=== PATIENT | female | born 1975 | race Caucasian/White ===

== ENCOUNTER 2017-07-11 17:28 | Emergency (ER) | payer OTHER ==
[~2017-07-11] VITALS: Ht 172.7 cm; Wt 134.3 kg
--- NOTE | 2017-07-11 18:40 | [facility]gent Treatment Center Report ---
History of Present Issue Date/Time Seen by Provider 07/11/17 1830 Visit Reason Pt arrived:Walked Presenting Problem:PT C/O SNEEZING, LT EAR PAIN, BODYACHES, INTERMITTENT FEVER, MILD CONGESTIO AND SORE THROAT Location if Accident: Onset of symptoms date/time:/ or onset unknown for:MEDICAL HX UNKNOWN Have you (or family members/close friends) recently traveled outside the [place]? N If Yes, where/when: Have you had exposure to infectious disease within the past month? TB? Other? Specify: Patient state that she has been having coughing congestion body aches sinus pain and pressure along with sneezing. Since Monday State that now she is also having fevers on and off, sinus pain and congestion and sore throat States that she was worried that she may have flu or strep throat ALLERGIES Coded Allergies: No Known Allergies (07/11/17) History Medical History General CAD? No Angina: No [place]: No Hypertension? No Hyperlipidemia? No CHF? No DVT? No PE? No COPD? No Asthma? No Anemia? No GERD? No Gastric ulcers? No GI Bleed? No Hernia? No Thyroid Problems? No Hypothyroidism? No CVA? No Seizures? No Diabetes? No Renal Insuffiency? No UTI? No Stones? No BPH? No GB Disease: No Nephritic Syndrome? No Asplenia? No Hepatitis? No Sickle Cell Disease? No Arthritis? No Migraines? No Cataracts? No Glaucoma? No MRSA? No HIV? No TB? No Anxiety? No Depression? No Cancer? No More? No Immunization HX DT/Tetanus Unknown Surgical Hx Previous Surgery?N Social History Smoking Hx Smoker: Current Every Day Smoker Tobacco: Yes Type Cigarettes Alcohol Alcohol: No Review of Systems All Other Systems Reviewed and Negative Constitutional chills, fever ENT nose congestion, throat pain. Respiratory cough, denies shortness of breath, denies wheezing Physical Exam Vital Signs Vital Signs Date Time Temp Pulse Resp B/P Pulse O2 O2 Flow FiO2 Ox Delivery Rate 07/11 1756 97.7 84 18 134/86 96 General Appearance Patient appears ill, cheeks flushed Ear, Nose, Throat sinus pain/drainage, nasal congestion, Throat red, irritated, drainage noted, tenderness noted maxillary and frontal sinus reports pressure feeling in sinus and dark yellow discharge Respiratory Status Yes: trachea midline, chest symmetrical, non tender chest. No: respiratory distress. Lung Sounds bilateral: normal breath sounds, lungs clear. Cardiovascular normal exam, regular rate/rhythm, no peripheral edema Neurologic alert, normal exam, oriented x 3 Medical Decision Making LABS/Meds/Orders Pt receiving controlled substance in ED? No Results/Orders Orders Procedure Date/time Status [facility] STREP SCREEN 07/11 1759 Active [facility] FLU A,B 07/11 1759 Active Departure Departure Time of Disposition 1850 Disposition DC Home or Self Care(routine) Clinical Impression Primary Impression: Upper respiratory infection Qualifiers: URI type: unspecified URI Qualified Code: J06.9 - Acute upper respiratory infection, unspecified Condition STABLE Referrals Ese VASQUES,Raquel Skaggs (Family): 3 Days-Call Office if no improvement Patient Instructions Cough, DI for Sinusitis, Sinus Headache, Sinusitis, Sore Throat Additional Instructions * Monitor Temp. Tylenol and/or Ibuprofen as needed. ER if fever is no less than 101 despite alternating Tylenol and Ibuprofen * Encourage fluids, water, Gatorade, powerade, pedialyte if /toddler/or child * Warm salt water gargles for throat irritation *Warm fluids *Sore throat lozenges *Sleep elevated *humidifier or vaporizer Lots of rest Increase fluids, water, Gatorade, powerade *Flonase 2 sprays each nostril daily but may take 2-3 days to notice improvement with it *Bromfed may cause drowsiness. Know how it effect you or your child. Before driving, caring for small children or sending your child to school *Your throat swab was sent to lab for culture. Those results area typically sent to your primary care physician. Be sure to follow up in 2-3 days if no improvement so they can review those results and treat if necessary If you dont have primary care I recommend you get one, but in the mean time you will have to return to a walk in clinic Follow up IMMEDIATELY for new or worsening of symptoms OR no noticeable improvement over the next 48-72 hours. 911 immediately for any life threatening symptoms such as chest pain or difficulty breathing Discharge Counseling Counseled pt/family regarding diagnosis, test results, medications/RX, home care, follow up needs Prescriptions Current Visit Scripts Azithromycin (Zithromycin (Z-ARTURO) 250MG Tab) 250 MG PO DAILY #6 TAB TAKE TWO (2) TABLETS ON DAY 1, THEN ONE (1) TABLET DAY #2 THRU #5 Fluticasone Propionate (Flonase 50 Mcg Nasal [place]) 2 SPRAY NA DAILY #1 BOT Methylprednisolone (Medrol Dose Arturo) 4 MG PO UD #1 ARTURO TAKE DIRECTED ON PACKAGING Guaifenesin (Mucinex) 1,200 MG PO BID #20 TER D-METHORPHAN HB/P-EPD HCL/BPM (Bromfed Dm Cough Syrup) 10 ML PO Q4HP PRN cough #200 SYR at 2748
--- NOTE | 2017-07-11 18:40 | Urgent Treatment Center Report ---
History of Present Issue Date/Time Seen by Provider 07/11/17 1830 Visit Reason Pt arrived:Walked Presenting Problem:PT C/O SNEEZING, LT EAR PAIN, BODYACHES, INTERMITTENT FEVER, MILD CONGESTIO AND SORE THROAT Location if Accident: Onset of symptoms date/time:/ or onset unknown for:MEDICAL HX UNKNOWN Have you (or family members/close friends) recently traveled outside the [place]? N If Yes, where/when: Have you had exposure to infectious disease within the past month? TB? Other? Specify: Patient state that she has been having coughing congestion body aches sinus pain and pressure along with sneezing. Since Monday State that now she is also having fevers on and off, sinus pain and congestion and sore throat States that she was worried that she may have flu or strep throat ALLERGIES Coded Allergies: No Known Allergies (07/11/17) History Medical History General CAD? No Angina: No [place]: No Hypertension? No Hyperlipidemia? No CHF? No DVT? No PE? No COPD? No Asthma? No Anemia? No GERD? No Gastric ulcers? No GI Bleed? No Hernia? No Thyroid Problems? No Hypothyroidism? No CVA? No Seizures? No Diabetes? No Renal Insuffiency? No UTI? No Stones? No BPH? No GB Disease: No Nephritic Syndrome? No Asplenia? No Hepatitis? No Sickle Cell Disease? No Arthritis? No Migraines? No Cataracts? No Glaucoma? No MRSA? No HIV? No TB? No Anxiety? No Depression? No Cancer? No More? No Immunization HX DT/Tetanus Unknown Surgical Hx Previous Surgery?N Social History Smoking Hx Smoker: Current Every Day Smoker Tobacco: Yes Type Cigarettes Alcohol Alcohol: No Review of Systems All Other Systems Reviewed and Negative Constitutional chills, fever ENT nose congestion, throat pain. Respiratory cough, denies shortness of breath, denies wheezing Physical Exam Vital Signs Vital Signs Date Time Temp Pulse Resp B/P Pulse O2 O2 Flow FiO2 Ox Delivery Rate 07/11 1756 97.7 84 18 134/86 96 General Appearance Patient appears ill, cheeks flushed Ear, Nose, Throat sinus pain/drainage, nasal congestion, Throat red, irritated, drainage noted, tenderness noted maxillary and frontal sinus reports pressure feeling in sinus and dark yellow discharge Respiratory Status Yes: trachea midline, chest symmetrical, non tender chest. No: respiratory distress. Lung Sounds bilateral: normal breath sounds, lungs clear. Cardiovascular normal exam, regular rate/rhythm, no peripheral edema Neurologic alert, normal exam, oriented x 3 Medical Decision Making LABS/Meds/Orders Pt receiving controlled substance in ED? No Results/Orders Orders Procedure Date/time Status [facility] STREP SCREEN 07/11 1759 Active [facility] FLU A,B 07/11 1759 Active Departure Departure Time of Disposition 1850 Disposition DC Home or Self Care(routine) Clinical Impression Primary Impression: Upper respiratory infection Qualifiers: URI type: unspecified URI Qualified Code: J06.9 - Acute upper respiratory infection, unspecified Condition STABLE Referrals Ese VASQUES,Raquel Skaggs (Family): 3 Days-Call Office if no improvement Patient Instructions Cough, DI for Sinusitis, Sinus Headache, Sinusitis, Sore Throat Additional Instructions * Monitor Temp. Tylenol and/or Ibuprofen as needed. ER if fever is no less than 101 despite alternating Tylenol and Ibuprofen * Encourage fluids, water, Gatorade, powerade, pedialyte if /toddler/or child * Warm salt water gargles for throat irritation *Warm fluids *Sore throat lozenges *Sleep elevated *humidifier or vaporizer Lots of rest Increase fluids, water, Gatorade, powerade *Flonase 2 sprays each nostril daily but may take 2-3 days to notice improvement with it *Bromfed may cause drowsiness. Know how it effect you or your child. Before driving, caring for small children or sending your child to school *Your throat swab was sent to lab for culture. Those results area typically sent to your primary care physician. Be sure to follow up in 2-3 days if no improvement so they can review those results and treat if necessary If you dont have primary care I recommend you get one, but in the mean time you will have to return to a walk in clinic Follow up IMMEDIATELY for new or worsening of symptoms OR no noticeable improvement over the next 48-72 hours. 911 immediately for any life threatening symptoms such as chest pain or difficulty breathing Discharge Counseling Counseled pt/family regarding diagnosis, test results, medications/RX, home care, follow up needs Prescriptions Current Visit Scripts Azithromycin (Zithromycin (Z-ARTURO) 250MG Tab) 250 MG PO DAILY #6 TAB TAKE TWO (2) TABLETS ON DAY 1, THEN ONE (1) TABLET DAY #2 THRU #5 Fluticasone Propionate (Flonase 50 Mcg Nasal [place]) 2 SPRAY NA DAILY #1 BOT Methylprednisolone (Medrol Dose Arturo) 4 MG PO UD #1 ATRURO TAKE DIRECTED ON PACKAGING Guaifenesin (Mucinex) 1,200 MG PO BID #20 TER D-METHORPHAN HB/P-EPD HCL/BPM (Bromfed Dm Cough Syrup) 10 ML PO Q4HP PRN cough #200 SYR at 1152
[2017-07-11] MEDS ORDERED: FLONASE 50 MCG16 GM (18:55)
[2017-07-11] MEDS ORDERED: BROMFED DM COU118 ML PO (18:55)
[2017-07-11] MEDS ORDERED: MEDROL 4MG. DOSE4 MG PO (18:55)
[2017-07-11] MEDS ORDERED: ZITHROMAX Z PA250 MG PO (18:55)
[2017-07-11] MEDS ORDERED: MUCINEX1200 MG PO (18:55)
[2017-07-11 19:05] VITALS: BP 134/86
[2017-07-11 19:10] LABS: UTC STREP SCREEN NOT DETECTED (NOTDETECTED)
== END 2017-07-11 19:05 | disposition home or self-care (01) ==
LOC: UTC 17:28
PROVIDERS: Nurse Practitioner
DX: J06.9 Acute upper respiratory infection, unspecified (principal)